=== PATIENT | male | born 1945 | race African-American/Black ===

== ENCOUNTER 2024-12-14 11:24 | Emergency (ER) | payer OTHER ==
[~2024-12-14] VITALS: Ht 175.3 cm; Wt 81.0 kg
[2024-12-14 11:31] VITALS: O2SAT 98
[2024-12-14] MEDS: SODIUM CHLORIDE 0.9% 1,000 ML IV ONE (12:21)
[2024-12-14 12:42] LABS: BASOPHILS % 0.5 % (0.0-2.0); EOSINOPHILS % 0.7 % (0.0-5.0); HEMATOCRIT. 40.8 % (42.0-52.0); HEMOGLOBIN. 13.1 g/dL (14.0-18.0); LYMPHOCYTES % 33.9 % (20.0-50.0); MEAN PLATELET VOLUME 8.9 fl (7.4-10.4); MONOCYTES % 9.3 % (2.0-8.0); NEUTROPHILS % 55.6 % (40.0-76.0); PLATELET 208 x1000/uL (130-400); RED BLOOD CELL COUNT 4.90 mill/uL (4.7-6.1); RED CELL DISTRIBUTION WIDTH 15.8 % (11.6-14.6)
[2024-12-14 12:55] LABS: CREATININE 1.1 mg/dL (0.6-1.3)
[2024-12-14 12:56] LABS: UREA NITROGEN BLOOD 13 mg/dL (9-23)
[2024-12-14 12:57] LABS: TROPONIN I HIGH SENSITIVITY < 4 ng/L (3.0-53)
[2024-12-14 13:02] LABS: INR 1.0
[2024-12-14] MEDS: POTASSIUM CHLORIDE 20MEQ/PACKET PO SCH (15:17)
[2024-12-14 16:00] VITALS: BP 169/40; TEMP 36.7; O2SAT 98
[2024-12-14 16:26] VITALS: PULSE 48; RESP 12; TEMP 98.1
[2024-12-14 16:33] LABS: CLARITY URINE CLEAR (CLEAR); COLOR URINE YELLOW (YELLOW); SPECIFIC GRAVITY URINE 1.018 (1.005-1.030)
[2024-12-14 16:34] LABS: GLUCOSE URINE 1+ (NEGATIVE); KETONES URINE TRACE (NEGATIVE); LEUKOCYTE ESTERASE URINE NEGATIVE (NEGATIVE); NITRITE URINE NEGATIVE (NEGATIVE); OCCULT BLOOD URINE NEGATIVE (NEGATIVE); PH URINE 6.5 (4.5-8.0); PROTEIN URINE NEGATIVE (NEGATIVE); UROBILINOGEN URINE 1 E.U./dL (0.2-1.0)
[2024-12-14 18:53] LABS: BACTERIA URINE NONE SEEN; CALCIUM PHOSPHATE CRYSTALS UR NONE SEEN /lpf; RBC URINE NONE SEEN /hpf (0-2); RENAL EPITHELIAL CELLS URINE NONE SEEN /lpf; SQUAMOUS EPITHELIAL CELL URINE NONE SEEN /lpf (RARE/1+); WBC URINE 0-2 /hpf (0-2); YEAST URINE NONE SEEN
== END 2024-12-14 16:58 | disposition left against medical advice (07) ==
LOC: ER 11:24
DX: R55 Syncope and collapse (principal); R00.1 Bradycardia, unspecified; R06.02 Shortness of breath
CPT/HCPCS: 99285; 96360; 70450; 71045; 80048; 81003; 83880; 85025; 85610; 84484; 36415; 93005; J7030